=== PATIENT | male | born 1950 | race Caucasian/White ===

== ENCOUNTER → 2018-03-17 | Outpatient (REF) | payer MEDICARE, OTHER ==
[2018-03-17 12:54] LABS: TOTAL 25(OH) VITAMIN D 69.2 NG/ML (30.0-100.0)
[2018-03-17 13:10] LABS: ALBUMIN 3.4 GM/DL (3.2-5.2); ALBUMIN/GLOBULIN RATIO 1.13 (1.00-1.93); ALKALINE PHOSPHATASE 121 U/L (45-117); ALT/SGPT 10 U/L (12-78); ANION GAP 5 MEQ/L (8-16); AST/SGOT 15 U/L (7-37); BILIRUBIN,TOTAL 0.4 MG/DL (0.2-1.0); BLOOD UREA NITROGEN 16 MG/DL (7-18); CALCIUM LEVEL 8.6 MG/DL (8.8-10.2); CARBON DIOXIDE LEVEL 29 MEQ/L (21-32); CHLORIDE LEVEL 108 MEQ/L (98-107); CHOLESTEROL LEVEL 125 MG/DL (<200); CHOLESTEROL RISK RATIO 2.358 (<5); CREATININE FOR GFR 0.87 MG/DL (0.70-1.30); GLOMERULAR FILTRATION RATE > 60.0 (>49); GLUCOSE, FASTING 87 MG/DL (70-100); HDL CHOLESTEROL 53 MG/DL (>40); LDL CHOLESTEROL 60.4 MG/DL (<100); NON-HDL-C 72 MG/DL; POTASSIUM SERUM 4.3 MEQ/L (3.5-5.1); PSA SCREENING 2.71 NG/ML (< 4.0); SODIUM LEVEL 142 MEQ/L (136-145); TOTAL PROTEIN 6.4 GM/DL (6.4-8.2); TRIGLYCERIDES LEVEL 58 MG/DL (<150)
== END ==
LOC: M LABDRAW1 12:01
DX: E55.9 Vitamin D deficiency, unspecified (principal); N40.1 Benign prostatic hyperplasia with lower urinary tract symptoms; Z12.5 Encounter for screening for malignant neoplasm of prostate
CPT/HCPCS: 80053

== ENCOUNTER → 2022-09-23 | Outpatient (CLI) | payer MEDICARE, OTHER ==
[~2022-09-23] MED LIST: ALBU8.5H; CETI10CH PO; ERGO500029; FLUTISP; MONT10TA97
== END ==
LOC: M LABSMTC 09:13
PROVIDERS: ATTEND Anesthesiology
DX: Z01.812 Encounter for preprocedural laboratory examination (principal); Z20.822 Contact with and (suspected) exposure to COVID-19

== ENCOUNTER 2022-09-28 07:26 | Day surgery (SDC) | payer MEDICARE, OTHER ==
[~2022-09-28] VITALS: Ht 188 cm; Wt 76.7 kg
[~2022-09-28 07:26] MED LIST changes: +LIDOCAINE 2% 100MG/5ML SDV (FOR ANES.) As Ordered ONE; +NS 1,000 ML IV ONE; +propofoL 200 MG/20 ML VIAL As Ordered ONE
== END 2022-09-28 09:45 | disposition home or self-care (01) ==
LOC: M OPP 07:26
PROVIDERS: ATTEND Internal Medicine Gastroenterology
DX: Z12.11 Encounter for screening for malignant neoplasm of colon (principal); D12.6 Benign neoplasm of colon, unspecified; K64.0 First degree hemorrhoids; K57.30 Diverticulosis of large intestine without perforation or abscess without bleeding; Z79.51 Long term (current) use of inhaled steroids; Z86.16 Personal history of COVID-19; F17.200 Nicotine dependence, unspecified, uncomplicated

== ENCOUNTER → 2024-08-25 | Outpatient (CLI) | payer MEDICARE, OTHER ==
[~2024-08-25] MED LIST changes: -LIDOCAINE 2% 100MG/5ML SDV (FOR ANES.) As Ordered ONE; -NS 1,000 ML IV ONE; +PROHANCE 279.3MG/ML 15ML VIAL As Ordered ONE; -propofoL 200 MG/20 ML VIAL As Ordered ONE
== END ==
LOC: M RAD 08:04
PROVIDERS: ATTEND Physician Assistant
DX: N42.9 Disorder of prostate, unspecified (principal); R97.20 Elevated prostate specific antigen [PSA]
CPT/HCPCS: 72197; A9576

== ENCOUNTER → 2024-10-03 | Outpatient (REF) | payer MEDICARE, OTHER ==
[~2024-10-03] MED LIST changes: -PROHANCE 279.3MG/ML 15ML VIAL As Ordered ONE
== END ==
LOC: M SMT 13:02
PROVIDERS: ATTEND Urology
DX: R97.20 Elevated prostate specific antigen [PSA] (principal); F17.210 Nicotine dependence, cigarettes, uncomplicated; N21.0 Calculus in bladder; Z80.7 Family history of other malignant neoplasms of lymphoid, hematopoietic and related tissues

== ENCOUNTER → 2024-10-03 | Outpatient (CLI) | payer MEDICARE, OTHER | LOC: M PLAIMG 13:29 | PROVIDERS: ATTEND Urology | DX: N21.0 Calculus in bladder (principal) ==

== ENCOUNTER → 2024-10-17 | Outpatient (CLI) | payer MEDICARE, OTHER | LOC: M RAD 15:27 | PROVIDERS: ATTEND Urology | DX: N21.0 Calculus in bladder (principal); K76.89 Other specified diseases of liver; N20.0 Calculus of kidney; K57.30 Diverticulosis of large intestine without perforation or abscess without bleeding; N32.3 Diverticulum of bladder; N40.0 Benign prostatic hyperplasia without lower urinary tract symptoms ==

== ENCOUNTER → 2024-11-03 | Outpatient (CLI) | payer MEDICARE, OTHER ==
[~2024-11-03] MED LIST changes: -ERGO500029; +ERGO500029 PO; -MONT10TA97; +MONT10TA97 PO; +TAMS1CAP17 PO
[2024-11-03 14:08] LABS: HEMATOCRIT 44.1 % (42.0-52.0); HEMOGLOBIN 14.5 g/dl (13.5-17.5); MEAN CORPUSCULAR HEMOGLOBIN 29.7 pg (27.0-33.0); MEAN CORPUSCULAR HGB CONC 32.9 g/dl (32.0-36.5); MEAN CORPUSCULAR VOLUME 90.2 fl (80.0-96.0); PLATELET COUNT, AUTOMATED 227 10^3/uL (150-450); RED BLOOD COUNT 4.89 10^6/uL (4.30-6.10); WHITE BLOOD COUNT 8.7 10^3/uL (4.0-10.0)
[2024-11-03 14:34] LABS: BLOOD UREA NITROGEN 17 MG/DL (9-23); CALCIUM LEVEL 9.1 MG/DL (8.3-10.6); CARBON DIOXIDE LEVEL 27 MMOL/L (20-31); CHLORIDE LEVEL 106 MMOL/L (98-107); CREATININE FOR GFR 0.93 MG/DL (0.70-1.30); GLOMERULAR FILTRATION RATE > 60.0 (>42); GLUCOSE, FASTING 104 MG/DL (74-106); POTASSIUM SERUM 4.4 MMOL/L (3.5-5.1); SODIUM LEVEL 138 MMOL/L (136-145)
== END ==
LOC: M PLALAB 10:08
PROVIDERS: ATTEND Urology
DX: Z01.818 Encounter for other preprocedural examination (principal); N21.0 Calculus in bladder

== ENCOUNTER → 2024-11-10 | Outpatient (CLI) | payer MEDICARE, OTHER | LOC: M RAD 11:22 | PROVIDERS: ATTEND Internal Medicine Pulmonary Disease | DX: J93.9 Pneumothorax, unspecified (principal); R91.8 Other nonspecific abnormal finding of lung field ==

== ENCOUNTER → 2024-11-15 | Outpatient (CLI) | payer MEDICARE, OTHER | LOC: M PLAIMG 08:44 | PROVIDERS: ATTEND Internal Medicine Pulmonary Disease | DX: J93.9 Pneumothorax, unspecified (principal) ==

== ENCOUNTER → 2024-12-19 | Outpatient (CLI) | payer MEDICARE, OTHER | LOC: M PLAIMG 07:22 | PROVIDERS: ATTEND Internal Medicine Pulmonary Disease | DX: J93.9 Pneumothorax, unspecified (principal) ==

== ENCOUNTER → 2024-12-26 | Outpatient (REF) | payer MEDICARE, OTHER ==
[~2024-12-26] MED LIST changes: +ALBU8.5H INH; +AMOX875T2; +PRED20TA PO; +TREL1AER INH
== END ==
LOC: M SMT 12:40
PROVIDERS: ATTEND Urology
DX: Z01.818 Encounter for other preprocedural examination (principal); N21.0 Calculus in bladder; N39.0 Urinary tract infection, site not specified

== ENCOUNTER 2025-01-03 06:06 | Day surgery (SDC) | payer MEDICARE, OTHER ==
[~2025-01-03] VITALS: Ht 188 cm; Wt 80.7 kg
[2025-01-03] MEDS ORDERED: LR 1,000 ML IV SCH (06:20)
[2025-01-03] MEDS ORDERED: propofoL 200 MG/20 ML VIAL As Ordered ONE (06:48)
[2025-01-03] MEDS ORDERED: LIDOCAINE 2% 100MG/5ML SDV (FOR ANES.) As Ordered ONE (06:48)
[2025-01-03] MEDS ORDERED: ONDANSETRON 4MG 2ML VIAL As Ordered ONE (06:48)
[2025-01-03] MEDS ORDERED: fentaNYL 100 MCG/2 ML INJECTION As Ordered ONE (06:51)
[2025-01-03] MEDS: ceFAZolin SOD 2 GM IV ONCE IV ONE (07:40)
[2025-01-03] MEDS ORDERED: ACETAMINOPHEN 1000MG/100ML IV BAG As Ordered ONE (07:41)
[2025-01-03] MEDS ORDERED: ONDANSETRON 4MG 2ML VIAL IV PRN (08:25)
[2025-01-03] MEDS ORDERED: MORPHINE 2 MG/ML 1ML VIAL IV PRN (08:25)
[2025-01-03] MEDS ORDERED: fentaNYL 100 MCG/2 ML INJECTION IV PRN (08:25)
[2025-01-03] MEDS ORDERED: oxyCODONE 5MG TAB PO PRN (08:25)
[2025-01-03 10:00] VITALS: BP 155/70; TEMP 97.1; O2SAT 98
== END 2025-01-03 10:10 | disposition home or self-care (01) ==
LOC: M SDC 06:06
PROVIDERS: ATTEND Urology
DX: N21.0 Calculus in bladder (principal); J44.9 Chronic obstructive pulmonary disease, unspecified; Z87.891 Personal history of nicotine dependence; N40.0 Benign prostatic hyperplasia without lower urinary tract symptoms; Z79.899 Other long term (current) drug therapy; Z79.51 Long term (current) use of inhaled steroids; Z79.52 Long term (current) use of systemic steroids
CPT/HCPCS: 52318; 82365; J0131; J0690; J1100; J2405; J3010

== ENCOUNTER → 2025-01-18 | Outpatient (CLI) | payer MEDICARE, OTHER | LOC: M CARPUL 07:46 | PROVIDERS: ATTEND Internal Medicine Pulmonary Disease | DX: J44.9 Chronic obstructive pulmonary disease, unspecified (principal) ==